=== PATIENT | female | born 1955 | race Caucasian/White ===

== ENCOUNTER 2017-10-14 13:01 | Observation (INO) | payer OTHER ==
[2017-10-14] VITALS (9 sets, daily range): BP systolic 121–168; BP diastolic 69–105; PULSE 63–73; RESP 16–21; TEMP 97.6–97.9; O2SAT 95–98
[~2017-10-14] VITALS: Ht 165.1 cm; Wt 95.0 kg
[~2017-10-14 13:01] MED LIST: ALBU8I INH; CIPR750T10 PO; FLAG500T PO; LORTA5 PO; ONDA1TAB16 PO; TAB-TAB PO; THYR15 PO; TRAM50TA PO
[2017-10-14] MEDS ORDERED: ARMO30TA PO (13:28)
[2017-10-14] MEDS ORDERED: LISI-519 PO (13:28)
[2017-10-14] MEDS ORDERED: ARMO90TA PO (13:28)
[2017-10-14] MEDS ORDERED: SODIUM CHLORIDE 0.9% FLUSH 10 ML FLUSH IVF PRN (13:30)
[2017-10-14 13:54] LABS: AUTOMATED NEUTROPHIL # 2.7 TH/MM3 (1.8-7.7); BASOPHIL # 0.1 TH/MM3 (0-0.2); BASOPHIL % 1.1 % (0.0-2.0); EOSINOPHIL # 0.1 TH/MM3 (0-0.4); EOSINOPHIL % 1.4 % (0.0-4.0); HEMATOCRIT 43.2 % (35.0-46.0); HEMO FLAGS DIFF FINAL; LYMPH % 31.8 % (9.0-44.0); LYMPHOCYTE # 1.6 TH/MM3 (1.0-4.8); MEAN CELL VOLUME 84.3 FL (80.0-100.0); MEAN CORPUSCULAR HEMOGLOBIN 28.9 PG (27.0-34.0); MEAN CORPUSCULAR HGB CONC 34.3 % (32.0-36.0); NEUT % 52.7 % (16.0-70.0); PLATELET COUNT 221 TH/MM3 (150-450); RED BLOOD COUNT 5.12 MIL/MM3 (4.00-5.30); RED CELL DISTRIBUTION WIDTH 14.6 % (11.6-17.2); WHITE BLOOD COUNT 5.1 TH/MM3 (4.0-11.0)
--- NOTE | 2017-10-14 13:54 | RADRPT ---
EXAM DATE/TIME: 10/14/2017 13:33 [place] COMPARISON: No previous studies available for comparison. INDICATIONS : Chest pain sudden onset. MEDICAL HISTORY : None. SURGICAL HISTORY : None. ENCOUNTER: Initial ACUITY: 1 day PAIN SCORE: 5/10 LOCATION: Bilateral chest FINDINGS: A single view of the chest demonstrates the lungs to be symmetrically aerated without evidence of mas s, infiltrate or effusion. The cardiomediastinal contours are unremarkable. Osseous structures are intact. CONCLUSION: No acute disease. Riaz Christensen MD on October 14, 2017 at 13:52 Board Certified Radiologist. This report was verified electronically.
[2017-10-14 14:07] LABS: APTT (PATIENT) 24.5 SEC (24.3-30.1); PROTHROMBIN TIME - PATIENT 10.6 SEC (9.8-11.6)
[2017-10-14 14:12] LABS: ANION GAP 4 MEQ/L (5-15); BICARBONATE 28.8 MEQ/L (21.0-32.0); BLOOD UREA NITROGEN 21 MG/DL (7-18); CHLORIDE 108 MEQ/L (98-107); GLOMERULAR FILTRATION RATE 86 ML/MIN (>89); MAGNESIUM 2.1 MG/DL (1.5-2.5); POTASSIUM 3.9 MEQ/L (3.5-5.1); SODIUM (NA) 141 MEQ/L (136-145)
[2017-10-14 14:19] LABS: CREATINE KINASE 80 U/L (26-192)
--- NOTE | 2017-10-14 14:32 | PD ---
HPI Chief Complaint: Cardiac Complaint Time Seen by Provider: 13:24 Travel History International Travel<30 days: No Contact w/Intl Traveler<30days: No Traveled to known affect area: No History of Present Illness HPI 62-year-old female presents emergency department via EMS for evaluation of upper chest pain, jaw pain and elevated blood pressure that started this afternoon. Patient states the upper chest pain felt like pressure and tightness that radiated bilaterally to her jawline. Patient states she felt nauseated and diaphoretic. She belched and all of the symptoms resolved including the nausea and diaphoresis, chest pain and jaw pain. However after she belched her blood pressure was taken and it was noted to be extremely elevated in the 170s systolically. Patient has a history of hypertension and takes lisinopril daily. Upon arrival to the emergency department all other physiological symptoms have resolved outside the elevated pressure. PFSH Past Medical History Asthma: Yes Cardiovascular Problems: Yes Diverticulitis: Yes Hypertension: Yes Thyroid Disease: Yes Menopausal: Yes Past Surgical History Section: Yes (X2) Hysterectomy: Yes Other Surgery: Yes (sinus,carpal) Social History Alcohol Use: Yes (OCC) Tobacco Use: No Substance Use: No Allergies-Medications (Allergen,Severity, Reaction): Coded Allergies: diatrizoate meglumine (Unverified Allergy, Severe, Shortness of Breath, ) gadobenic acid (Unverified Allergy, Severe, Shortness of Breath, 10/14/17) gadodiamide (Unverified Allergy, Severe, Shortness of Breath, 10/14/17) gadoteridol (Unverified Allergy, Severe, Shortness of Breath, 10/14/17) iodixanol (Unverified Allergy, Severe, Shortness of Breath, 10/14/17) iohexol (Unverified Allergy, Severe, Shortness of Breath, 10/14/17) Uncoded Allergies: IVP DYE (CT SCAN) (Allergy, Unknown, 07/10/03) NKA (Allergy, Unknown, 07/10/03) Reported Meds & Prescriptions Reported Meds & Active Scripts Active Reported [place] Thyroid (Thyroid) 30 Mg Tab 45 Mg PO DIRECTED [place] Thyroid (Thyroid) 90 Mg Tab 90 Mg PO DIRECTED Lisinopril 5 Mg Tab 5 Mg PO DAILY Review of Systems Except as stated in HPI: all other systems reviewed are Neg Physical Exam Narrative GENERAL: Well-nourished, well-developed 62-year-old female patient in no acute distress. Nontoxic appearing. SKIN: Focused skin assessment warm/dry. HEAD: Normocephalic. Atraumatic. EYES: No scleral icterus. No injection or drainage. NECK: Supple, trachea midline. No JVD or lymphadenopathy. CARDIOVASCULAR: Regular rate and rhythm without murmurs, gallops, or rubs. RESPIRATORY: Breath sounds equal bilaterally. No accessory muscle use. GASTROINTESTINAL: Abdomen soft, non-tender, nondistended. MUSCULOSKELETAL: No cyanosis, or edema. BACK: Nontender without obvious deformity. No CVA tenderness. Data Data Last Documented VS Vital Signs Date Time Temp Pulse Resp B/P (MAP) Pulse Ox O2 Delivery O2 Flow Rate FiO2 10/14/17 13:45 97.9 67 21 160/77 (104) 98 Room Air 168/86 (113) Orders Orders Electrocardiogram (10/14/17 13:25) Basic Metabolic Panel (Bmp) (10/14/17 13:25) Ckmb (Isoenzyme) Profile (10/14/17 13:25) Complete Blood Count With Diff (10/14/17 13:25) Magnesium (Mg) (10/14/17 13:25) Prothrombin Time / Inr (Pt) (10/14/17 13:25) Act Partial Throm Time (Ptt) (10/14/17 13:25) Troponin I (10/14/17 13:25) Chest, Single Ap (10/14/17 13:25) Ecg Monitoring (10/14/17 13:25) Bilateral Bp Monitoring (10/14/17 13:25) Iv Access Insert/Monitor (10/14/17 13:25) Oximetry (10/14/17 13:25) Oxygen Administration (10/14/17 13:25) Sodium Chloride 0.9% Flush (Ns Flush) (10/14/17 13:30) Admit Order (Ed Use Only) (10/14/17 14:32) Nitroglycerin Sl (Nitrostat Sl) (10/14/17 14:45) Labs Laboratory Tests Test 10/14/17 13:30 White Blood Count 5.1 TH/MM3 Red Blood Count 5.12 MIL/MM3 Hemoglobin 14.8 GM/DL Hematocrit 43.2 % Mean Corpuscular Volume 84.3 FL Mean Corpuscular Hemoglobin 28.9 PG Mean Corpuscular Hemoglobin Concent 34.3 % Red Cell Distribution Width 14.6 % Platelet Count 221 TH/MM3 Mean Platelet Volume 7.4 FL Neutrophils (%) (Auto) 52.7 % Lymphocytes (%) (Auto) 31.8 % Monocytes (%) (Auto) 13.0 % Eosinophils (%) (Auto) 1.4 % Basophils (%) (Auto) 1.1 % Neutrophils # (Auto) 2.7 TH/MM3 Lymphocytes # (Auto) 1.6 TH/MM3 Monocytes # (Auto) 0.7 TH/MM3 Eosinophils # (Auto) 0.1 TH/MM3 Basophils # (Auto) 0.1 TH/MM3 CBC Comment DIFF FINAL Differential Comment Prothrombin Time 10.6 SEC Prothromb Time International Ratio 1.0 RATIO Activated Partial Thromboplast Time 24.5 SEC Blood Urea Nitrogen 21 MG/DL Creatinine 0.69 MG/DL Random Glucose 97 MG/DL Calcium Level 8.9 MG/DL Magnesium Level 2.1 MG/DL Sodium Level 141 MEQ/L Potassium Level 3.9 MEQ/L Chloride Level 108 MEQ/L Carbon Dioxide Level 28.8 MEQ/L Anion Gap 4 MEQ/L Estimat Glomerular Filtration Rate 86 ML/MIN Total Creatine Kinase 80 U/L Troponin I LESS THAN 0.02 NG/ML MDM Medical Decision Making Medical Screen Exam Complete: Yes Emergency Medical Condition: Yes Differential Diagnosis Differential diagnoses include but are not limited to electrolyte abnormality, elevated blood pressure, coronary event, indigestion, anxiety Narrative Course Patient placed on monitor, 12-lead EKG obtained, IV obtained, blood work sent to the lab. CBC, BNP, troponin, CK, PT/INR, magnesium ordered and pending. Bilateral blood pressure obtained. Blood work shows no acute abnormality, chest x-ray shows no acute disease, EKG shows sinus rhythm with heart rate 64bpm. Patient had another episode of chest pain and nausea in our facility. Another EKG was obtained during this episode of chest pain which was very similar to the original EKG and showed sinus rhythm with heart rate 66 bpm. Aspirin, Zofran and nitroglycerin were going to be ordered but the patient refused to take any medication because she does not like taking pharmaceuticals. She eventually agreed to take nitroglycerin. Nitroglycerin 0.4 sublingual tabs 3 ordered. Based on patient's symptoms, clinical presentation, lab results, radiological results, vital sign review and physical exam it is recommended to admit the patient to the hospital's chest pain center for a stress test. Patient will be admitted to the chest pain center. Diagnosis Primary Impression: Chest pain Qualified Codes: R07.9 - Chest pain, unspecified Admitting Information Admitting Physician Requests: Leyla Huerta Oct 14, 2017 14:32
[2017-10-14] MEDS: NITROGLYCERIN 0.4 MG SL 25 TABS/BTL SL SCH ×3 (14:49→14:55)
[2017-10-14] MEDS ORDERED: ONDANSETRON HCL 4 MG/2 ML VIAL IV PUSH PRN (16:30)
[2017-10-14] MEDS ORDERED: cloNIDine HCL 0.1 MG TAB PO PRN (16:30)
[2017-10-14] MEDS ORDERED: ACETAMINOPHEN 500 MG CPLT PO PRN (16:30)
[2017-10-14] MEDS ORDERED: RESP: ALBUTEROL 2.5 MG/IPRATROPIUM 0.5 MG NEB (PRN) INH (16:30)
[2017-10-14] MEDS ORDERED: ALPRAZolam 0.25 MG TAB PO PRN (16:30)
[2017-10-14] MEDS ORDERED: ACETAMINOPHEN/HYDROcodone 325 MG/7.5 MG TAB PO PRN (16:30)
--- NOTE | 2017-10-14 16:38 | HHI.HP ---
[facility] Primary Care Physician Evangelista Hensley MD (Paul) Chief Complaint Chest pain History of Present Illness This is a 62-year-old female that presents to ED via [facility] with a complaint of developing a discomfort in the upper chest/neck and face that felt like a pressure. She was at work this morning when it occurred. [place] like she needed to belch. She drinks some water and did burp. The symptoms are resolved and was immediately. She felt a little nauseous. No diaphoresis or shortness of breath. Symptoms not recur. When [facility] had arrived, her blood pressure was found to be 175/101. She states her blood pressures usually controlled with lisinopril 5 mg daily. Denies history of heart disease. Cannot recall prior cardiac testing. Denies recent illnesses. Denies fevers or chills. Review of Systems General: Patient denies fevers, chills recent, and recent travel HEENT: Patient denies headache, sore throat, difficulty swallowing. Cardiovascular: Has the chest discomfort as mentioned above. Denies sensation of heart beating rapidly or irregularly. No syncope. No diaphoresis. Respiratory: Denies shortness of breath or inspirational chest discomfort. Denies coughing wheezing or hemoptysis. GI: She was briefly nauseous. Patient denies vomiting, diarrhea, abdominal pain , bloody stools. Musculoskeletal: Patient denies joint pain or edema. Denies calf pain or edema. Neurovascular: Patient denies numbness, tingling, weakness in extremities. Denies headache. Endocrine: Denies polyuria and polydipsia. Hematologic: Denies easy bruising. Skin: Denies rash or itching. Past Family Social History Allergies: Coded Allergies: diatrizoate meglumine (Unverified Allergy, Severe, Shortness of Breath, ) gadobenic acid (Unverified Allergy, Severe, Shortness of Breath, 10/14/17) gadodiamide (Unverified Allergy, Severe, Shortness of Breath, 10/14/17) gadoteridol (Unverified Allergy, Severe, Shortness of Breath, 10/14/17) iodixanol (Unverified Allergy, Severe, Shortness of Breath, 10/14/17) iohexol (Unverified Allergy, Severe, Shortness of Breath, 10/14/17) Uncoded Allergies: IVP DYE (CT SCAN) (Allergy, Unknown, 07/10/03) NKA (Allergy, Unknown, 07/10/03) Past Medical History Hypertension, hypothyroidism, asthma. Denies hyperlipidemia, diabetes, and known CAD. Past Surgical History 2, hysterectomy, sinus surgery, bilateral carpal tunnel release, and bunionectomy. Reported Medications Reported Meds & Active Scripts Active Reported [place] Thyroid (Thyroid) 30 Mg Tab 45 Mg PO DIRECTED [place] Thyroid (Thyroid) 90 Mg Tab 90 Mg PO DIRECTED Lisinopril 5 Mg Tab 5 Mg PO DAILY Active Ordered Medications Current Medications Medications (Trade) Dose Ordered Sig/Andrade Route Start Time Stop Time Status Last Admin (NS Flush) 2 ml UNSCH PRN IVF 10/14/17 13:30 (Prinivil) 5 mg DAILY PO 10/15/17 09:00 UNV (Tylenol) 500 mg Q4H PRN PO 10/14/17 16:30 UNV (Alba 7.5-325 Mg) 1 tab Q4H PRN PO 10/14/17 16:30 UNV (Zofran Inj) 4 mg Q6H PRN IV PUSH 10/14/17 16:30 UNV (Protonix) 40 mg DAILY PO 10/14/17 16:30 UNV (Aspirin) 325 mg DAILY PO 10/15/17 09:00 UNV (Xanax) 0.25 mg Q8H PRN PO 10/14/17 16:30 UNV (Duoneb Neb) 1 ampule Q4HR NEB PRN INH 10/14/17 16:30 UNV (Catapres) 0.1 mg Q4H PRN PO 10/14/17 16:30 UNV Family History Denies family history of CAD. Social History Patient quit smoking 29 years ago. Prior to that she smoked about 1 pack of cigarettes daily for 15 years. Has on average a couple alcohol beverages twice a week. Denies illicit drugs. She works for [employer]. Physical Exam Vital Signs Vital Signs Date Time Temp Pulse Resp B/P (MAP) Pulse Ox O2 Delivery O2 Flow Rate FiO2 10/14/17 15:26 97.6 65 16 148/73 (98) 97 10/14/17 15:23 10/14/17 15:13 68 18 131/73 (92) 98 Room Air 10/14/17 14:52 73 21 148/69 (95) 97 Room Air 10/14/17 14:45 68 19 147/105 (119) 97 Room Air 10/14/17 13:45 97.9 67 21 160/77 (104) 98 Room Air 168/86 (113) 10/14/17 13:36 99 Room Air 10/14/17 13:36 (113) Room Air 10/14/17 13:19 73 21 151/95 (113) 96 Room Air 10/14/17 13:19 73 Physical Exam GENERAL: This is a well-nourished, well-developed patient, in no apparent distress. Patient speaks in clear complete sentences. Patient is pleasant. HEENT: Head is atraumatic and normocephalic. Neck is supple without lymphadenopathy and trachea is midline. No JVD or carotid bruits. CARDIOVASCULAR: Regular rate and rhythm without murmurs, gallops, or rubs. RESPIRATORY: Clear to auscultation. Breath sounds equal bilaterally. No wheezes , rales, or rhonchi. Chest wall is nontender. No use of accessory muscles. GASTROINTESTINAL: Abdomen is nontender, nondistended. Abdomen soft. No obvious pulsatile mass or bruit. No CVA tenderness. Strong femoral pulses bilaterally. Normal bowel sounds in all quadrants. MUSCULOSKELETAL: Patient is moving upper and lower extremities freely. No calf tenderness or edema, no Homans sign. Strong pulses in upper and lower extremities. NEUROLOGICAL: Patient is alert and oriented. Cranial nerves 2-12 are grossly intact. No focal deficits and speech is clear. SKIN: No rash and turgor is normal. Laboratory Laboratory Tests Test 10/14/17 13:30 White Blood Count 5.1 Red Blood Count 5.12 Hemoglobin 14.8 Hematocrit 43.2 Mean Corpuscular Volume 84.3 Mean Corpuscular Hemoglobin 28.9 Mean Corpuscular Hemoglobin Concent 34.3 Red Cell Distribution Width 14.6 Platelet Count 221 Mean Platelet Volume 7.4 Neutrophils (%) (Auto) 52.7 Lymphocytes (%) (Auto) 31.8 Monocytes (%) (Auto) 13.0 Eosinophils (%) (Auto) 1.4 Basophils (%) (Auto) 1.1 Neutrophils # (Auto) 2.7 Lymphocytes # (Auto) 1.6 Monocytes # (Auto) 0.7 Eosinophils # (Auto) 0.1 Basophils # (Auto) 0.1 CBC Comment DIFF FINAL Differential Comment Prothrombin Time 10.6 Prothromb Time International Ratio 1.0 Activated Partial Thromboplast Time 24.5 Blood Urea Nitrogen 21 Creatinine 0.69 Random Glucose 97 Calcium Level 8.9 Magnesium Level 2.1 Sodium Level 141 Potassium Level 3.9 Chloride Level 108 Carbon Dioxide Level 28.8 Anion Gap 4 Estimat Glomerular Filtration Rate 86 Total Creatine Kinase 80 Troponin I LESS THAN 0.02 Result Diagram: 10/14/17 1330 10/14/17 1330 Imaging Last 48 hours Impressions Chest X-Ray 10/14/17 1325 Signed Impressions: Service Date/Time: October 13:33 - CONCLUSION: No acute disease. Riaz Christensen MD Course Initial EKG is sinus rhythm without significant ST segment depressions or elevations. Caprini VTE Risk Assessment Caprini VTE Risk Assessment: Mod/High Risk (score >= 2) Caprini Risk Assessment Model Point Value = 1 Point Value = 2 Point Value = 3 Point Value = 5 Age 41-60 Minor surgery BMI > 25 kg/m2 Swollen legs Varicose veins or History of unexplained or recurrent spontaneous Oral contraceptives or hormone replacement Sepsis (< 1 month) Serious lung disease, including pneumonia (< 1 month) Abnormal pulmonary function Acute myocardial infarction Congestive heart failure (< 1 month) History of inflammatory bowel disease Medical patient at bed rest Age 61-74 Arthroscopic surgery Major open surgery (> 45 min) Laparoscopic surgery (> 45 min) Malignancy Confined to bed (> 72 hours) Immobilizing plaster cast Central venous access Age >= 75 History of VTE Family history of VTE Factor V Leiden Prothrombin [id number] Lupus anticoagulant Anticardiolipin antibodies Elevated serum homocysteine Heparin-induced thrombocytopenia Other congenital or acquired thrombophilia Stroke (< 1 month) Elective arthroplasty Hip, pelvis, or leg fracture Acute spinal cord injury (< 1 month) Prophylaxis Regimen Total Risk Factor Score Risk Level Prophylaxis Regimen 0-1 Low Early ambulation 2 Moderate Order ONE of the following: *Sequential Compression Device (SCD) *Heparin 5000 units SQ BID 3-4 Higher Order ONE of the following medications: *Heparin 5000 units SQ TID *Enoxaparin/Lovenox 40 mg SQ daily (WT < 150 kg, CrCl > 30 mL/min) *Enoxaparin/Lovenox 30 mg SQ daily (WT < 150 kg, CrCl > 10-29 mL/min) *Enoxaparin/Lovenox 30 mg SQ BID (WT < 150 kg, CrCl > 30 mL/min) AND/OR *Sequential Compression Device (SCD) 5 or more Highest Order ONE of the following medications: *Heparin 5000 units SQ TID (Preferred with Epidurals) *Enoxaparin/Lovenox 40 mg SQ daily (WT < 150 kg, CrCl > 30 mL/min) *Enoxaparin/Lovenox 30 mg SQ daily (WT < 150 kg, CrCl > 10-29 mL/min) *Enoxaparin/Lovenox 30 mg SQ BID (WT < 150 kg, CrCl > 30 mL/min) AND *Sequential Compression Device (SCD) Assessment and Plan Assessment and Plan * Chest pain: Patient will have serial cardiac enzymes and EKGs for ruling out purposes. She will be seen by Dr. Pham of cardiology in the chest pain center in the morning. Patient will have an ETT in the morning if she rules out. Will be discharged home if her stress test was nonischemic. She should follow-up with her PCP. Return to ED for interval issues. * Hypertension: We'll resume her medication. Continue to monitor. Patient may need adjustment of her lisinopril. * Hypothyroidism: Patient to resume her medication. Patient is stable at this time. She is agreeable to this plan. Héctor Navarrete Oct 14, 2017 16:38
[2017-10-14 20:53] LABS: CREATINE KINASE 69 U/L (26-192)
[2017-10-14] MEDS: PANTOPRAZOLE SOD 40 MG DELAYED RELEASE TAB PO SCH (21:19)
[2017-10-15 00:27] VITALS: PULSE 61
[2017-10-15 00:35] VITALS: BP 139/76; PULSE 62; RESP 18; TEMP 97.8; O2SAT 95
[2017-10-15 04:46] VITALS: PULSE 63
[2017-10-15 05:40] VITALS: BP 127/71; PULSE 66; RESP 18; TEMP 97.8; O2SAT 94
[2017-10-15 08:05] VITALS: BP 133/63; PULSE 62; RESP 20; TEMP 97.9; O2SAT 96
[2017-10-15] MEDS: PANTOPRAZOLE SOD 40 MG DELAYED RELEASE TAB PO SCH (08:10)
--- NOTE | 2017-10-15 08:45 | EKG ---
Date Performed: 10/14/2017 Time Performed: 19:48:26 PTAGE: 62 years EKG: Sinus rhythm LEFT AXIS DEVIATION ABNORMAL ECG PREVIOUS TRACING : 10/14/2017 17.13 Since previous tracing, no significant change noted DOCTOR: Hiren Stevenson Interpretating Date/Time 10/15/2017 08:44:18
--- NOTE | 2017-10-15 08:45 | EKG ---
Date Performed: 10/14/2017 Time Performed: 17:13:56 PTAGE: 62 years EKG: Sinus rhythm BORDERLINE LEFT AXIS DEVIATION BORDERLINE ECG PREVIOUS TRACING : 10/14/2017 13.17 Since previous tracing, no significant change noted DOCTOR: Hiren Stevenson Interpretating Date/Time 10/15/2017 08:45:01
--- NOTE | 2017-10-15 08:46 | EKG ---
Date Performed: 10/14/2017 Time Performed: 14:38:55 PTAGE: 62 years EKG: Sinus rhythm MARKED LEFT AXIS DEVIATION ABNORMAL ECG INTERPRETATION BASED ON A DEFAULT AGE OF 38 YEARS NO PREVIOUS TRACING DOCTOR: Hiren Stevenson Interpretating Date/Time 10/15/2017 08:45:44
--- NOTE | 2017-10-15 08:48 | EKG ---
Date Performed: 10/14/2017 Time Performed: 13:17:05 PTAGE: 62 years EKG: Sinus rhythm MARKED LEFT AXIS DEVIATION ABNORMAL ECG PREVIOUS TRACING : 06/13/2004 09.00 Since previous tracing, no significant change noted DOCTOR: Hiren Stevenson Interpretating Date/Time 10/15/2017 08:46:47
[2017-10-15] MEDS ORDERED: LISINOPRIL 5 MG TAB PO SCH (09:00)
[2017-10-15] MEDS ORDERED: ASPIRIN 325 MG TAB PO SCH (09:00)
[2017-10-15] MEDS ORDERED: PILL SPLITTER OTHER PRN (09:00)
[2017-10-15] MEDS ORDERED: THYROID 60 MG TAB PO ONE ×2 (09:00)
--- NOTE | 2017-10-15 12:02 | TR ---
Date Performed: 10/15/2017 Time Performed: 10:33:20 DOCTOR: Fredi Pham DRUG LIST: CLINICAL HISTORY: CHEST PAIN REASON FOR TEST: REASON FOR ENDING: OBSERVATION: CONCLUSION: Fito protocol completed. Stopped sec to leg fatigue. Maximum NE=496 Target HR Achie ana=83.0% Maximum VJ=402/80. No reprod chest pain. No ectopy. Good exercise tolerance. No st segments to sugg ischemia. Normal bp response. Recovery quick and unremarkable. COMMENTS:
--- NOTE | 2017-10-15 12:02 | HHI.DCPOC ---
Discharge Care Plan Diagnosis: (1) Atypical chest pain Goals to Promote Your Health * To prevent worsening of your condition and complications * To maintain your health at the optimal level Directions to Meet Your Goals Take your medications as prescribed Follow your dietary instruction Follow activity as directed Keep your appointments as scheduled Take your immunizations and boosters as scheduled If your symptoms worsen call your PCP, if no PCP go to Urgent Care Center or Emergency Room Smoking is Dangerous to Your Health. Avoid second hand smoke Call the 24-hour hour crisis hotline for domestic abuse at [place] Oct 15, 2017 12:02
== END 2017-10-15 12:30 | disposition home or self-care (01) ==
LOC: NEPC 13:01 → NEDA 14:34 → NEPGCP 15:23 → NEPFCDU 15:29
PROVIDERS: ADMIT Internal Medicine Cardiovascular Disease; ATTEND Internal Medicine Cardiovascular Disease
DX: R07.89 Other chest pain (principal); R11.0 Nausea; R68.84 Jaw pain; R61 Generalized hyperhidrosis; I10 Essential (primary) hypertension; E03.9 Hypothyroidism, unspecified; R94.31 Abnormal electrocardiogram [ECG] [EKG]; Z79.899 Other long term (current) drug therapy; J45.909 Unspecified asthma, uncomplicated; Z87.891 Personal history of nicotine dependence
CPT/HCPCS: 71010; 80048; 82550; 83735; 84484; 85025; 85610; 85730; 93005; 93017; 99285; G0378